=== PATIENT | female | born 1995 | race Caucasian/White ===

== ENCOUNTER 2019-05-14 11:23 | Emergency (ER) | payer BC ==
[~2019-05-14] VITALS: Ht 152.4 cm; Wt 50.8 kg
[~2019-05-14 11:23] MED LIST: IBUP-1561 PO
[2019-05-14 11:25] VITALS: BP 126/78; PULSE 58; RESP 18; Ht 152.4 cm; Wt 50.8 kg
== END 2019-05-14 13:41 | disposition home or self-care (01) ==
LOC: E/R 11:23
DX: M54.5 Low back pain (principal); R07.89 Other chest pain; M54.2 Cervicalgia
CPT/HCPCS: 71045; 72040